=== PATIENT | male | born 1980 | race Hispanic/Latino ===

== ENCOUNTER 2022-05-27 01:45 | Observation (INO) | payer SELFPAY ==
[2022-05-27] MEDS ORDERED: Boostrix 0.5 ML (Tdap) VIAL ONE (02:10)
[2022-05-27] MEDS ORDERED: Lidocaine 1% PF 5 ML VIAL ONE (02:20)
[2022-05-27] MEDS ORDERED: Ondansetron PF 4 MG/2 ML Vial IVP PRN (05:28)
[2022-05-27] MEDS ORDERED: Promethazine HCl 25 MG/ML VIAL IM PRN (05:28)
[2022-05-27 05:37] LABS: #Basophils 0.1 thou/uL (0.0-0.2); #Lymphocytes 1.5 thou/uL (1.20-3.40); #Monocytes 0.4 thou/uL (0.11-0.59); #Neutrophils 13.2 thou/uL (1.40-6.50); %Basophils 0.7 % (0.0-1.0); %Eosinophils 0.2 % (0.0-10.0); %Lymphocytes 9.9 % (21.0-51.0); %Monocytes 2.4 % (0.0-10.0); %Neutrophils 86.9 % (42.0-75.0); Mean Corpuscular HGB CONC 32.6 g/dL (32.0-36.0); Mean Corpuscular Hemoglobin 31.2 pg (27.0-31.0); Mean Corpuscular Volume 95.8 fL (78.0-98.0); Mean Platelet Volume 11.1 fL (7.4-10.4); Platelet Count 137 thou/uL (130-400); RBC Distribution Width 12.4 % (11.5-14.5); Red Blood Cell (RBC) Count 5.13 mill/uL (4.70-6.10); White Blood Cell (WBC) Count 15.2 thou/uL (4.8-10.8)
[2022-05-27 05:55] LABS: Acetaminophen Less than 10.0 mcg/mL (10.0-30.0); Alcohol 209 mg/dL (Less than 10); Salicylate Less than 8.0 mg/dL (15.0-30.0)
[2022-05-27 05:57] LABS: ALT (SGPT) 57 U/L (8-55); AST (SGOT) 36 U/L (5-34); Albumin 4.5 g/dL (3.5-5.0); Alkaline Phosphatase 128 U/L (40-110); Anion Gap 16 mmol/L (10-20); BUN (Urea Nitrogen) 9 mg/dL (8.9-20.6); Calc. Creatinine Clearance 0 mL/min (70-130); Carbon Dioxide 24 mmol/L (22-29); Chloride 104 mmol/L (98-107); Estimated GFR 115; Globulin 3.6 g/dL (2.4-3.5); Glucose 175 mg/dL (70-105); Potassium 3.6 mmol/L (3.5-5.1); Protein, Total 8.1 g/dL (6.0-8.3); Sodium 140 mmol/L (136-145)
[2022-05-27] MEDS: Sodium Chloride 0.9% 1,000 ML IV SCH ×3 (08:27→17:11)
[2022-05-27] MEDS: Thiamine 100 MG TAB PO SCH (08:28)
[2022-05-27] MEDS: Folic Acid 1 MG TAB PO SCH (08:28)
[2022-05-27] MEDS: Famotidine 20 MG TAB PO SCH ×2 (08:28→20:41)
[2022-05-27] MEDS: Polyethylene Glycol 3350 17 GM Packet PO SCH (08:29)
[2022-05-27] MEDS: Senokot S 8.6-50 MG TAB PO SCH ×2 (08:29→20:42)
[2022-05-27] MEDS: Oxazepam 10 MG CAP PO SCH ×3 (09:27→22:07)
[2022-05-27] MEDS: Amoxicillin/Potassium Clav 500 MG TAB PO SCH ×2 (09:28→20:41)
[2022-05-27] MEDS: Acetaminophen 500 MG TAB PO SCH ×3 (09:28→17:08)
[2022-05-27 10:17] VITALS: BMI 24.0
[2022-05-28] MEDS: Acetaminophen 500 MG TAB PO SCH ×3 (00:40→12:07)
[2022-05-28] MEDS: Sodium Chloride 0.9% 1,000 ML IV SCH ×2 (01:30→09:22)
[2022-05-28 05:40] LABS: Anion Gap 13 mmol/L (10-20); BUN (Urea Nitrogen) 10 mg/dL (8.9-20.6); Calc. Creatinine Clearance 131 mL/min (70-130); Calcium 8.8 mg/dL (7.8-10.44); Carbon Dioxide 26 mmol/L (22-29); Chloride 106 mmol/L (98-107); Estimated GFR 117; Glucose 110 mg/dL (70-105); Potassium 3.7 mmol/L (3.5-5.1); Sodium 141 mmol/L (136-145)
[2022-05-28 05:55] LABS: #Eosinphils 0.1 thou/uL (0.0-0.7); #Lymphocytes 2.4 thou/uL (1.20-3.40); #Monocytes 0.7 thou/uL (0.11-0.59); #Neutrophils 5.8 thou/uL (1.40-6.50); %Basophils 0.3 % (0.0-1.0); %Eosinophils 0.7 % (0.0-10.0); %Lymphocytes 26.7 % (21.0-51.0); %Monocytes 7.4 % (0.0-10.0); Hemoglobin 14.4 g/dL (14.0-18.0); Mean Corpuscular HGB CONC 33.6 g/dL (32.0-36.0); Mean Corpuscular Hemoglobin 32.3 pg (27.0-31.0); Mean Corpuscular Volume 96.1 fL (78.0-98.0); Mean Platelet Volume 10.9 fL (7.4-10.4); Platelet Count 119 thou/uL (130-400); Platelet Morphology Comment Appears Decreased; RBC Distribution Width 12.1 % (11.5-14.5); RBC Morphology Normal; Red Blood Cell (RBC) Count 4.46 mill/uL (4.70-6.10); White Blood Cell (WBC) Count 8.9 thou/uL (4.8-10.8)
[2022-05-28] MEDS: Oxazepam 10 MG CAP PO SCH (05:57)
[2022-05-28] MEDS: Amoxicillin/Potassium Clav 500 MG TAB PO SCH (09:21)
[2022-05-28] MEDS: Thiamine 100 MG TAB PO SCH (09:21)
[2022-05-28] MEDS: Senokot S 8.6-50 MG TAB PO SCH (09:21)
[2022-05-28] MEDS: Famotidine 20 MG TAB PO SCH (09:21)
[2022-05-28] MEDS: Folic Acid 1 MG TAB PO SCH (09:22)
[2022-05-28] MEDS: Polyethylene Glycol 3350 17 GM Packet PO SCH (09:22)
[2022-05-28 11:42] VITALS: BP 146/97; TEMP 98.1
== END 2022-05-28 12:20 | disposition home or self-care (01) ==
LOC: ERS 01:45 → EDSEX 01:45 → NEURO 07:30
PROVIDERS: ADMIT Surgery; ATTEND Surgery
DX: S06.2X9A Diffuse traumatic brain injury with loss of consciousness of unspecified duration, initial encounter (principal); S02.2XXA Fracture of nasal bones, initial encounter for closed fracture; S02.841A Fracture of lateral orbital wall, right side, initial encounter for closed fracture; F10.129 Alcohol abuse with intoxication, unspecified; U07.1 COVID-19; Y90.7 Blood alcohol level of 200-239 mg/100 ml; Y00.XXXA Assault by blunt object, initial encounter
CPT/HCPCS: 12013; 36415; 70450; 70486; 72125; 80048; 80053; 80307; 85025; 85610; 85730; 86850; 86900; 86901; 90471; 90715; G0378; G0390; J7050; U0003; U0005